=== PATIENT | female | born 1995 | race Caucasian/White ===

== ENCOUNTER 2022-11-29 13:37 | Day surgery (SDC) | payer OTHER ==
[2022-11-29 14:25] VITALS: BMI 32.5
[2022-11-29] MEDS ORDERED: hydrALAZINE 20 MG/ML VIAL SLOW IVP PRN (14:53)
[2022-11-29 15:15] LABS: Fetal Membranes Rupture No Membranes Rupture (No Rupture)
== END 2022-11-29 17:15 | disposition home or self-care (01) ==
LOC: CSHLD/OP 13:37
PROVIDERS: ATTEND Student in an Organized Health Care Education/Training Program
DX: O47.1 False labor at or after 37 completed weeks of gestation (principal); Z3A.38 38 weeks gestation of pregnancy; Z98.84 Bariatric surgery status
CPT/HCPCS: 84112

== ENCOUNTER 2022-12-07 17:59 | Inpatient (IN) | payer OTHER, BC ==
[~2022-12-07 17:59] MED LIST: Bupivacaine 0.25% HCL 30 ML VIAL ONE; ePHEDrine Sulfate 50 MG/10 ML VIAL ONE
[2022-12-07 18:37] VITALS: BMI 32.9
[2022-12-07] MEDS ORDERED: fentaNYL 50 mcg/mL 1 mL Vial ONE ×2 (19:17→21:44)
[2022-12-07] MEDS ORDERED: fentaNYL/Ropivacaine Epidural 100 ML ONE (21:24)
[2022-12-07] MEDS ORDERED: Misoprostol 200 MCG TAB PR PRN (21:44)
[2022-12-07] MEDS ORDERED: Methylergonovine 0.2 MG/ML VIAL IM PRN (21:44)
[2022-12-07] MEDS ORDERED: Lidocaine 1% (PF) 30 ML VIAL SC PRN (21:44)
[2022-12-07] MEDS ORDERED: Diphenoxylate HCl/Atropine Tablet PO PRN (21:44)
[2022-12-07] MEDS ORDERED: Ondansetron PF 4 MG/2 ML Vial IVP PRN ×2 (21:44→23:22)
[2022-12-07] MEDS ORDERED: hydrALAZINE 20 MG/ML VIAL SLOW IVP PRN (21:44)
[2022-12-07] MEDS ORDERED: Carboprost 250 MCG/ML AMP IM PRN (21:44)
[2022-12-07] MEDS ORDERED: Promethazine HCl 25 MG/ML VIAL IM PRN ×2 (21:44→23:22)
[2022-12-07] MEDS ORDERED: Tranexamic Acid 1,000 MG/10 ML VIAL IVP PRN (21:44)
[2022-12-07] MEDS ORDERED: Oxytocin 30 units/NS 500 ML 500 ML IV SCH ×2 (22:00)
[2022-12-07 22:05] LABS: Hemoglobin 10.5 g/dL (12.0-15.5); Mean Corpuscular HGB CONC 31.8 g/dL (32.0-36.0); Mean Corpuscular Hemoglobin 27.1 pg (27.0-33.0); Mean Corpuscular Volume 85.3 fl (81.6-98.3); Mean Platelet Volume 11.3 fl (7.4-10.4); Platelet Count 366 10x3/uL (150-450); RBC Distribution Width 12.8 % (11.5-14.5); Red Blood Cell (RBC) Count 3.87 10x6/uL (3.90-5.03); White Blood Cell (WBC) Count 13.1 10x3/uL (3.5-10.5)
[2022-12-07 22:31] LABS: HBSAg Index 0.16 S/CO (0-0.99); Hep B Surf Ag - L&D Non-Reactive S/CO (NonReactive)
[2022-12-07 22:32] LABS: Syphilis Antibody Nonreactive (Nonreactive); Syphilis Antibody Index 0.02 S/CO (<1.00 Non-Reactive)
[2022-12-07] MEDS ORDERED: Naloxone HCl 0.4 mg/ml Vial IVP PRN ×2 (23:22)
[2022-12-07] MEDS ORDERED: ePHEDrine Sulfate 50 MG/10 ML VIAL SLOW IVP PRN (23:22)
[2022-12-07] MEDS ORDERED: diphenhydrAMINE 50 MG/ML VIAL IVP PRN (23:22)
[2022-12-07] MEDS ORDERED: Acetaminophen 325 MG TAB PO PRN (23:22)
[2022-12-07] MEDS ORDERED: Moisturizing Cream (Eucerin) 113 GM JAR TOP PRN (23:22)
[2022-12-07] MEDS ORDERED: Lactated Ringer's 500 ML IV PRN (23:22)
[2022-12-07] MEDS ORDERED: Communication Order-Pharmacy FS SCH (23:30)
[2022-12-07] MEDS ORDERED: fentaNYL 2 mcg/Ropivacaine 0.2% Epidural 100 ML CADD EPIDURAL SCH (23:30)
[2022-12-08] MEDS ORDERED: PHENYLEPHRINE-NS 100 MCG/ML 10 ML SYRINGE ONE (05:55)
[2022-12-08] MEDS ORDERED: Azithromycin 500 MG VIAL ONE (06:00)
[2022-12-08] MEDS ORDERED: CEFAZOLIN 2 GM VIAL ONE (06:01)
[2022-12-08] MEDS ORDERED: Phenylephrine 40 MG/NS 250 ML 250 ML ONE (06:11)
[2022-12-08] MEDS ORDERED: Oxytocin 10 UNITS/ML VIAL ONE (06:11)
[2022-12-08] MEDS ORDERED: Metoclopramide HCl 10 MG/2 ML VIAL ONE (06:12)
[2022-12-08] MEDS ORDERED: Dexamethasone 4 mg/ml Vial ONE (06:12)
[2022-12-08] MEDS ORDERED: Ondansetron PF 4 MG/2 ML Vial ONE (06:12)
[2022-12-08 06:18] LABS: pH (Cord, venous) 7.094 (7.250-7.350)
[2022-12-08] MEDS ORDERED: Promethazine HCl 25 MG/ML VIAL ONE (06:27)
[2022-12-08] MEDS ORDERED: Morphine PF 10 MG/10 ML VIAL ONE (06:51)
[2022-12-08] MEDS ORDERED: hydrALAZINE 20 MG/ML VIAL SLOW IVP PRN ×2 (06:54→07:54)
[2022-12-08] MEDS ORDERED: Milk Of Magnesia 30 ML UDCUP PO PRN (06:54)
[2022-12-08] MEDS ORDERED: Boostrix 0.5 ML (Tdap) VIAL (>/=7 yrs of age) IM ONE (06:54)
[2022-12-08] MEDS ORDERED: Bisacodyl 10 MG SUPP PR PRN (06:54)
[2022-12-08] MEDS ORDERED: Promethazine HCl 25 MG/ML VIAL IM PRN (07:02)
[2022-12-08] MEDS ORDERED: Naloxone HCl 0.4 mg/ml Vial IVP PRN ×2 (07:02)
[2022-12-08] MEDS ORDERED: Moisturizing Cream (Eucerin) 113 GM JAR TOP PRN (07:02)
[2022-12-08] MEDS ORDERED: fentaNYL 50 mcg/mL 1 mL Vial SLOW IVP PRN (07:02)
[2022-12-08] MEDS ORDERED: Naloxone HCl 0.4 mg/ml Vial IV PRN (07:02)
[2022-12-08] MEDS ORDERED: Promethazine HCl 25 MG SUPP PR PRN (07:02)
[2022-12-08] MEDS ORDERED: diphenhydrAMINE 50 MG/ML VIAL IVP PRN (07:02)
[2022-12-08] MEDS ORDERED: Ondansetron PF 4 MG/2 ML Vial IVP PRN ×2 (07:02)
[2022-12-08] MEDS ORDERED: Communication Order-Pharmacy FS SCH (07:15)
[2022-12-08] MEDS: Ketorolac Tromethamine 30 MG/ML VIAL IVP PRN ×2 (07:42→13:50)
[2022-12-08] MEDS ORDERED: Calcium Gluc 4.6 MEQ/10 ML (100 MG/ML) SLOW IVP PRN (07:54)
[2022-12-08] MEDS ORDERED: Labetalol HCl 100 MG/20 ML VIAL SLOW IVP PRN ×2 (07:54)
[2022-12-08] MEDS ORDERED: Lorazepam 2 MG/ML VIAL SLOW IVP PRN (07:54)
[2022-12-08] MEDS ORDERED: Magnesium Sulfate 1 GM, IV Admixture Fee-Chemo 1 UNITS in Sodium Chloride 0.9% 100 ML IV SCH (08:00)
[2022-12-08] MEDS ORDERED: Magnesium Sulfate 20 gm/500 ml 20 GM/500 ML BAG ONE (08:00)
[2022-12-08] MEDS: Magnesium Sulfate 20 gm/500 ml 20 GM/500 ML BAG IVPB SCH ×2 (08:05→16:32)
[2022-12-08] MEDS: Ferrous Sulfate 325 MG TAB PO SCH ×2 (08:16→18:09)
[2022-12-08] MEDS: Docusate 100 MG CAP PO SCH ×2 (08:18→21:26)
[2022-12-08] MEDS ORDERED: Magnesium Sulfate 20 gm/500 ml 4 GM/100 ML BAG IVPB ONE (08:30)
[2022-12-08 17:49] LABS: ALT (SGPT) Less than 7 U/L (8-55); AST (SGOT) 26 U/L (5-34); Alkaline Phosphatase 91 U/L (40-110); Anion Gap 15 mmol/L (10-20); BUN (Urea Nitrogen) Less than 4 mg/dL (7.0-18.7); Bilirubin, Total 0.5 mg/dL (0.2-1.2); Calc. Creatinine Clearance 177 mL/min (70-130); Calcium 7.9 mg/dL (7.8-10.44); Carbon Dioxide 18 mmol/L (22-29); Chloride 107 mmol/L (98-107); Estimated GFR 125; Globulin 2.9 g/dL (2.4-3.5); Glucose 112 mg/dL (70-105); Potassium 3.9 mmol/L (3.5-5.1); Protein, Total 5.9 g/dL (6.0-8.3); Sodium 136 mmol/L (136-145)
[2022-12-08 17:50] LABS: Creatinine, Urine 35.51 mg/dL (47-110); Protein, Urine Random Quant Less than 10 mg/dL (1-14)
[2022-12-08 17:55] LABS: #Basophils 0.1 10x3/uL (0.0-0.2); #Eosinphils 0.1 10x3/uL (0.0-0.5); #Monocytes 1.7 10x3/uL (0.0-1.1); %Basophils 0.2 % (0.0-2.0); %Eosinophils 0.4 % (0.0-6.0); %Lymphocytes 2.7 % (18.0-47.0); %Monocytes 6.9 % (0.0-10.0); %Neutrophils 89.2 % (40.0-75.0); Hematocrit 30.8 % (34.9-44.5); Hemoglobin 9.8 g/dL (12.0-15.5); Mean Corpuscular HGB CONC 31.8 g/dL (32.0-36.0); Mean Corpuscular Hemoglobin 27.6 pg (27.0-33.0); Mean Corpuscular Volume 86.8 fl (81.6-98.3); Mean Platelet Volume 10.4 fl (7.4-10.4); Platelet Count 318 10x3/uL (150-450); RBC Distribution Width 12.8 % (11.5-14.5); Red Blood Cell (RBC) Count 3.55 10x6/uL (3.90-5.03); White Blood Cell (WBC) Count 24.7 10x3/uL (3.5-10.5)
[2022-12-09] MEDS: HYDROcodone/Acetaminophen 5/325 mg Tablet PO PRN ×3 (03:02→18:22)
[2022-12-09] MEDS: Simethicone Chewable 80 MG TAB PO PRN ×3 (03:02→18:25)
[2022-12-09 07:12] LABS: #Basophils 0.1 10x3/uL (0.0-0.2); #Monocytes 1.6 10x3/uL (0.0-1.1); #Neutrophils 17.7 10x3/uL (1.5-8.4); %Basophils 0.3 % (0.0-2.0); %Eosinophils 0.2 % (0.0-6.0); %Lymphocytes 8.2 % (18.0-47.0); %Monocytes 7.3 % (0.0-10.0); %Neutrophils 83.5 % (40.0-75.0); Hematocrit 29.6 % (34.9-44.5); Hemoglobin 9.5 g/dL (12.0-15.5); Mean Corpuscular HGB CONC 32.1 g/dL (32.0-36.0); Mean Corpuscular Hemoglobin 28.1 pg (27.0-33.0); Mean Corpuscular Volume 87.6 fl (81.6-98.3); Mean Platelet Volume 10.7 fl (7.4-10.4); Platelet Count 342 10x3/uL (150-450); RBC Distribution Width 13.2 % (11.5-14.5); Red Blood Cell (RBC) Count 3.38 10x6/uL (3.90-5.03); White Blood Cell (WBC) Count 21.3 10x3/uL (3.5-10.5)
[2022-12-09] MEDS: Ferrous Sulfate 325 MG TAB PO SCH ×2 (09:36→18:22)
[2022-12-09] MEDS: Docusate 100 MG CAP PO SCH ×2 (09:36→21:27)
[2022-12-09] MEDS: Polyethylene Glycol 3350 17 GM Packet PO SCH (09:37)
[2022-12-09] MEDS: Ibuprofen 800 MG TAB PO SCH ×2 (13:26→21:27)
[2022-12-10] MEDS: HYDROcodone/Acetaminophen 5/325 mg Tablet PO PRN ×3 (02:22→20:11)
[2022-12-10] MEDS: Ibuprofen 800 MG TAB PO SCH ×3 (05:05→22:07)
[2022-12-10] MEDS: Ferrous Sulfate 325 MG TAB PO SCH ×2 (09:14→18:51)
[2022-12-10] MEDS: Polyethylene Glycol 3350 17 GM Packet PO SCH (09:14)
[2022-12-10] MEDS: Docusate 100 MG CAP PO SCH ×2 (09:14→20:12)
[2022-12-11 05:17] VITALS: TEMP 97.8
[2022-12-11] MEDS: Ibuprofen 800 MG TAB PO SCH ×2 (05:50→14:08)
[2022-12-11 07:48] VITALS: BP 118/73
[2022-12-11] MEDS: Ferrous Sulfate 325 MG TAB PO SCH (08:09)
[2022-12-11] MEDS: Polyethylene Glycol 3350 17 GM Packet PO SCH (08:09)
[2022-12-11] MEDS: HYDROcodone/Acetaminophen 5/325 mg Tablet PO PRN (08:09)
[2022-12-11] MEDS: Docusate 100 MG CAP PO SCH (08:09)
== END 2022-12-11 14:25 | disposition home or self-care (01) | DRG 788 ==
LOC: CSHLD/OP 17:59 → CSHLD 20:38 → CSHPP 12-08 20:15
PROVIDERS: ADMIT Student in an Organized Health Care Education/Training Program; ATTEND Student in an Organized Health Care Education/Training Program
PROC: 10D00Z1 Extraction of Products of Conception, Low, Open Approach (ICD-10-PCS; principal; 2022-12-08)
DX: O99.214 Obesity complicating childbirth (principal); O62.1 Secondary uterine inertia; Z3A.39 39 weeks gestation of pregnancy; Z37.0 Single live birth
CPT/HCPCS: 36415; 51702; 74018; 80053; 82570; 82805; 84156; 85025; 85027; 86780; 86850; 86900; 86901; 87340; 99285; J0360; J1100; J1200; J1885; J2274; J2405; J2550; J2590; J2765; J3010; J3475; S0020